=== PATIENT | female | born 1975 | race Two or more races ===

== ENCOUNTER 2017-11-15 23:24 | Emergency (ER) | payer MEDICAID | END 2017-11-15 23:43 | disposition home or self-care (01) | LOC: ED 23:37 | DX: Z02.9 Encounter for administrative examinations, unspecified (principal) ==

== ENCOUNTER 2018-09-20 20:10 | Emergency (ER) | payer MEDICAID, OTHER ==
[~2018-09-20] VITALS: Ht 152.4 cm; Wt 65.0 kg
[2018-09-20 22:25] VITALS: BP 115/54
== END 2018-09-20 23:08 | disposition home or self-care (01) ==
LOC: ED 21:54
DX: K80.70 Calculus of gallbladder and bile duct without cholecystitis without obstruction (principal)
CPT/HCPCS: 36415; 76700; 80053; 81003; 83690; 85025; 96374; 96375; 96376; 99284; J1885; J2270; J2405

== ENCOUNTER 2020-06-06 11:16 | Outpatient (CLI) | payer OTHER, MEDICAID | END 2020-06-06 23:59 | disposition home or self-care (01) | LOC: STAR 11:16 | PROVIDERS: ATTEND Surgery | DX: Z02.9 Encounter for administrative examinations, unspecified (principal) ==